=== PATIENT | female | born 1955 | race Caucasian/White ===

== ENCOUNTER 2016-10-05 13:06 | Emergency (ER) | payer OTHER ==
[2016-10-05 14:25] LABS: BASO # 0.1 10_X3_uL (0.0-0.1); EOS # 0.1 10_X3_uL (0.0-0.4); EOS % 2.2 % (0.7-5.8); GRAN # 2.6 10_X3_uL (1.6-6.1); GRAN % 51.3 % (34.0-71.1); HEMATOCRIT 39.8 % (34-45); HEMOGLOBIN 13.1 g/dL (11.2-15.7); LYMPH # 1.8 10_X3_uL (1.2-3.7); LYMPH % 35.8 % (19.3-51.7); MEAN CORPUSCULAR HEMOGLOBIN 32.8 pg (27.0-33.0); MEAN CORPUSCULAR HGB CONC 32.9 g/dL (32.0-36.0); MEAN CORPUSCULAR VOLUME 99.5 fL (79-95); MEAN PLATELET VOLUME 10.4 fl (7.5-11.5); MONO # 0.5 10_X3_uL (0.2-0.9); MONO % 9.7 % (4.7-12.5); PLATELET COUNT 226 x10_3/uL (182-369); RED CELL DISTRIBUTION WIDTH 14.9 % (11.7-14.4); WHITE BLOOD COUNT 5.1 x10_3/uL (4.0-10.0)
[2016-10-05 14:38] LABS: ALBUMIN 4.1 gm/dL (3.4-5.0); ALKALINE PHOSPHATASE 76 U/L (50-136); ALT/SGPT 7 U/L (3.5-33.9); AST/SGOT 14 U/L (7.04-26.96); BILIRUBIN,TOTAL 0.49 mg/dL (0.0-1.0); BLOOD UREA NITROGEN 13 mg/dL (7-18); CALCIUM 9.3 mg/dL (8.7-10.7); CARBON DIOXIDE 26 mmol/L (21-32); CREATININE 0.9 mg/dL (0.6-1.3); GLUCOSE,RANDOM 89 mg/dL (70-99); POTASSIUM 4.5 mmol/L (3.5-5.1); SODIUM 144 mmol/L (136-145); TOTAL PROTEIN 7.1 gm/dL (6.4-8.2)
[2016-10-05 15:10] LABS: URINE BILIRUBIN NEGATIVE (NEGATIVE); URINE BLOOD NEGATIVE (NEGATIVE); URINE GLUCOSE (UA) NORMAL (NORMAL); URINE KETONE NEGATIVE (NEGATIVE); URINE LEUKOCYTE ESTERASE TRACE (NEGATIVE); URINE NITRATE NEGATIVE (NEGATIVE); URINE PROTEIN NEGATIVE (NEGATIVE); URINE RBC 0-5 /[HPF] (0-2); URINE SQUAMOUS EPITHELIAL CELL 0-10 /[HPF] (NONE SEEN); URINE WBC 0-5 /[HPF] (0-5); UROBILINOGEN NORMAL mg/dL (<1.0)
[2016-10-05 15:11] LABS: URINE BACTERIA TRACE (NONE SEEN)
== END 2016-10-05 16:15 | disposition home or self-care (01) ==
LOC: ER 13:06
PROVIDERS: Emergency Medicine
DX: R10.31 Right lower quadrant pain (principal); M79.651 Pain in right thigh; I51.9 Heart disease, unspecified; Z95.810 Presence of automatic (implantable) cardiac defibrillator; Z79.82 Long term (current) use of aspirin; Z79.899 Other long term (current) drug therapy; Z88.0 Allergy status to penicillin
CPT/HCPCS: 36415; 80053; 81001; 85025; 99284-25